=== PATIENT | female | born 1955 | race Caucasian/White ===

== ENCOUNTER 2019-05-11 16:42 | Inpatient (IN) | payer MEDICARE ==
[~2019-05-11] VITALS: Ht 160 cm; Wt 53.0 kg
--- NOTE | 2019-05-11 16:50 | NUR ---
PATIENT TO ROOM VIA WHEELCHAIR, BEDSIDE TRIAGE COMPLETED.
--- NOTE | 2019-05-11 18:06 | NUR ---
SPOKE WITH ANTOINE PEREZ IN LAB, X2 HAS BEEN COLLECTED.
[2019-05-11 18:11] LABS: HEMATOCRIT 42.9 % (37.0-47.0); HEMOGLOBIN 13.8 g/dl (12.0-16.0); IMMATURE GRANULOCYTES 0.3 % (0.0-5.0); MEAN CELL VOLUME 96.6 fL CALC (80.0-100.0); MEAN CORPUSCULAR HGB 31.1 pG CALC (26.0-32.0); MEAN CORPUSCULAR HGB CONC 32.2 g/L CALC (32.0-36.0); NEUT# 6.85 thou/uL (2.00-7.15); RED BLOOD COUNT 4.44 mill/uL (4.20-5.60); RED CELL DISTRI WIDTH 12.2 % (11.5-15.5)
[2019-05-11 18:25] LABS: PROTHROMBIN TIME 10.5 SECONDS (9.0-12.5)
[2019-05-11 18:30] LABS: ALBUMIN 3.5 g/dL (3.2-5.0); ALKALINE PHOSPHATASE 67 u/l (38-126); BILIRUBIN, TOTAL 0.7 mg/dL (0.0-1.4); BUN 19 mg/dL (8-23); BUN/CREATININE RATIO 27 (12-20 (CALC)); CHLORIDE 83 mmol/l (95-108); CREATININE 0.7 mg/dL (0.5-1.0); ETHYL ALCOHOL 0 mg/dl (0-30); GFR > 60 ML/MIN (>=60 (CALC)); GFR FOR AFR.AMER. > 60 ML/MIN (>=60 (CALC)); LIPASE 17 u/l (23-300); MAGNESIUM 1.8 mg/dL (1.6-2.3); POTASSIUM 3.5 mmol/l (3.5-5.1); SGOT/AST 28 u/l (9-36); SODIUM 136 mmol/l (137-146); TOTAL PROTEIN 6.8 g/dL (6.3-8.2)
[2019-05-11 18:35] LABS: ANION GAP 11 (6-22 (CALC))
[2019-05-11 18:38] LABS: CARBON DIOXIDE 46 mmol/l (22-30)
--- NOTE | 2019-05-11 20:28 | NUR ---
REPORT GIVEN TO CHRISTINE ENRIQUE. ED PHYSICIAN, DR. SMITH, NOTIFIED OF POSITIVE FLU. HE PLANS TO ORDER TAMIFLU
--- NOTE | 2019-05-11 21:00 | NUR ---
ARRIVED FROM ER ON BIPAP. PLACED ON DROPLET PRECAUTIONS FOR POSITIVE INFLUENZA A. ORKIENTED TO ROOM AND ADMISSION WORKUP BEGUN.
[2019-05-11 22:00] VITALS: BP 105/73
[2019-05-11 23:00] VITALS: BP 110/69
[2019-05-12] VITALS (22 sets, daily range): BP systolic 96–166; BP diastolic 49–85
--- NOTE | 2019-05-12 00:27 | NUR ---
JADE BIPAP. POPSICLE AND ICE WITH SIPS OF WATER GIVEN INTERMITTENTLY. PO MEDS GIVEN AT HS INCLUDING FIRST DOSE OF TAMIFLU.
--- NOTE | 2019-05-12 02:05 | NUR ---
TOLERATING BIPAP. WATCHING TV REMAINS AWAKE. LOW SINUS TACH ON TELE, 106.
--- NOTE | 2019-05-12 04:24 | NUR ---
TAKEN OFF BIPAP AND PLACED ON 3L NC SHORT TERM FOR PT TO EAT 1/2 OF POPSICLE STICK. HAD NO SOB, DYSPNEA, TACHYPNEA OR 02 SAT ALTERATION. RETURNED TO BIPAP AT PREVIOUS SETTINGS. RESTING NOW WITH EYES CLOSED AND FACE RELAXED.
[2019-05-12 06:38] LABS: ANION GAP 8 (6-22 (CALC)); BUN 25 mg/dL (8-23); BUN/CREATININE RATIO 34 (12-20 (CALC)); CARBON DIOXIDE 39 mmol/l (22-30); CHLORIDE 92 mmol/l (95-108); CREATININE 0.7 mg/dL (0.5-1.0); GFR > 60 ML/MIN (>=60 (CALC)); GFR FOR AFR.AMER. > 60 ML/MIN (>=60 (CALC)); POTASSIUM 3.6 mmol/l (3.5-5.1); SODIUM 136 mmol/l (137-146)
--- NOTE | 2019-05-12 06:38 | NUR ---
AM MEDS GIVEN AND PT VOIDED ON BEDPAN. URINE SPEC SENT TO LAB. TAKEN OFF BIPAP FOR SHORT TIME WHILE PT ATE 1/2 POPSICLE. 02 SATS AND RR MAINTAINED BUT PT VERBALIZED THAT SHE WAS FEELING VERY SHORT OF BREATH. RETURNED TO BIPAP AT PREVIOUS SETTINGS.
--- NOTE | 2019-05-12 06:45 | NUR ---
RECIEVED REPORT FROM CHRISTINE ENRIQUE. ASSUMED PT CARE.
--- NOTE | 2019-05-12 07:00 | NUR ---
PT RESTING IN BED, A&0X4, ABLE TO MAKE NEEDS KNOWN. RESPIRATIONS EVEN/UNLABORED, PT REMAINS ON BIPAP /, FIO2@ 30%. DROPLET PRECAUTIONS INTACT, SA02@96%, LS DIMINISHED THROUGHOUT. ABDOMEN SOFT, FLAT, NON-TENDER, BSX4 ACTIVE. LANE'S BLE, HEELS OFFLOADED. PT REMAINS ST ON TELEMETRY, HR 102. PT DENIES CP OR DISTRESS AT THIS TIME. CALL LIGHT IN REACH. WILL MONITOR.
[2019-05-12 07:03] LABS: URINE BILIRUBIN - DIPSTICK SMALL (NEGATIVE); URINE COLOR YELLOW; URINE GLUCOSE - DIPSTICK NEGATIVE (NEGATIVE); URINE KETONE 15 mg/dL (NEGATIVE); URINE LEUK ESTERASE SMALL (NEGATIVE); URINE NITRITE - DIPSTICK POSITIVE (Negative); URINE PH 6.5 (4.5-8.0); URINE PROTEIN - DIPSTICK TRACE mg/dL (NEG-TRACE); URINE UROBILINOGEN - DIPSTICK 0.2 E.U./dL (0.2)
[2019-05-12 07:04] LABS: URINE BLOOD DIPSTICK NEGATIVE (NEGATIVE)
[2019-05-12 07:08] LABS: URINE BACTERIA MANY hpf; URINE EPITHELIAL CELLS MODERATE EPI/hpf (0-FEW)
[2019-05-12 07:12] LABS: BARBITURATES NEGATIVE (NEGATIVE); COCAINE NEGATIVE (NEGATIVE); METHADONE NEGATIVE (NEGATIVE); TETRAHYDROCANNABIONOL NEGATIVE (NEGATIVE); TRICYLIC ANTIDEPRESSANTS NEGATIVE (NEGATIVE)
[2019-05-12 07:13] LABS: OXCYCODONE NEGATIVE (NEGATIVE)
--- NOTE | 2019-05-12 07:29 | NUR ---
RT AT BEDSIDE FOR ABG.
--- NOTE | 2019-05-12 08:15 | NUR ---
DIETARY ON UNIT, PT REPOSITIONS SELF. BIPAP PLACED ON STANDBY. PT TOLERATING WELL. [id number]% ON 4LPM VIA NC. BREAKFAST TRAY SET UP. CALL LIGHT IN REACH. WILL MONITOR.
--- NOTE | 2019-05-12 09:27 | NUR ---
PT FAMILY ARRIVED AT BEDSIDE, UPON ENTERING UNIT, PT SISTER BEGAN DEMANDING TO BE UPDATED ON PT CONDITION. THIS REFRIGERATION ENGINEER ASKED HER TO WEAR MASK UPON ENTERING ROOM AND INFORMED THAT THE THE PT WAS A&OX4 AND ABLE TO ANSWER THE QUESTIONS SHE MAY HAVE. UPON HER SISTER ENTERING PT ROOM PT SISTER BEGAN DEMANDING INFORMATION AND BECAME LOUD WITH PT. PT REMAINS ON 4LPM VIA NC AND BEGAN TO BE SOB, PT THEN ASKED TO BE PLACED BACK ON THE BIPAP. PT SA02 97% ON 4LPM VIA NS, RESPIRATIONS BECAME FAST AND LABORED. FAMILY REMINDED THAT PT NEEDED A CALM ENVIRONMENT AND THAT IF THEY WERE UNABLE TO MAINTAIN THAT, THEY WOULD BE ASKED TO LEAVE. REPLACED BIPAP AND SAME SETTINGS PER PT REQUEST. CALL LIGHT IN REACH. WILL MONITOR. FAMILY REMAINS AT BEDSIDE.
--- NOTE | 2019-05-12 10:06 | NUR ---
RT AT BEDSIDE FOR BREATHING TX. PT REMAINS ON BIPAP.
[2019-05-12] MEDS ORDERED: LEVOTHYROXIN75 MCG PO (10:29)
[2019-05-12] MEDS ORDERED: ISOSORB DIN30 MG PO (10:30)
[2019-05-12] MEDS ORDERED: RANOLAZINE ER500 MG PO (10:30)
[2019-05-12] MEDS ORDERED: MAXZIDE PO (10:31)
[2019-05-12] MEDS ORDERED: CALAN SR120 M1 PO (10:31)
[2019-05-12] MEDS ORDERED: PRAVASTATIN40 MG PO (10:32)
[2019-05-12] MEDS ORDERED: SPIRIVA HANDIHALER IN (10:33)
--- NOTE | 2019-05-12 12:00 | NUR ---
PT RESTING IN BED WITH EYES CLOSED, SISTER REMAINS AT BEDSIDE. RESPIRATION EVEN/UNLABORED. CALL LIGHT IN REACH.
--- NOTE | 2019-05-12 12:30 | NUR ---
BIPAP STANDBY. PT ON 3L NC
--- NOTE | 2019-05-12 13:00 | NUR ---
DR. DAMON AT BEDSIDE FOR ASSESSMENT AND TO DISCUSS PLAN OF CARE, NEW PRDERS RECIEVED.
--- NOTE | 2019-05-12 14:28 | NUR ---
PT ASSISTED WITH BEDPAN, VOIDED 250, DARK CAROL ANN URINE. PT REMAINS ON BIPAP. CALL LIGHT IN REACH.
--- NOTE | 2019-05-12 15:49 | NUR ---
BIPAP PAUSED, PT OFFERED FLUIDS AND SNACK, THEN BIPAP REPLACED AT PREVIOUS SETTING. PT TOLERATED WELL. CALL LIGHT IN REACH, WILL MONITOR.
--- NOTE | 2019-05-12 16:26 | NUR ---
PT RESTING IN BED WITH EYES CLOSED. OFFERS NO COMPLAINTS AT THIS TIME. IS DELIVERED TO ROOM BY RT.
--- NOTE | 2019-05-12 17:36 | NUR ---
BIPAP STANDBY. PT ON 3L NC
--- NOTE | 2019-05-12 18:00 | NUR ---
PT RESTING IN BED, WATCHING TV. PT REMAINS ON 02@3LPM VIA NC. SA02 REMAINS 96%. CALL LIGHT IN REACH. WILL MONITOR.
--- NOTE | 2019-05-12 20:00 | NUR ---
PATIENT RESTING IN BED. FAMILY AT BEDSIDE. PATIENT REQUESTING TO BE ON BIPAP. PATIENT ASSESSMENT COMPLETED. VITALS STABLE. PATIENT IN NO SIGNS OF DISTRESS. LUNGS DIMINISHED. O2 SAT 95% ON BIPAP. WILL CONTINUE TO MONITOR PATIENT.
--- NOTE | 2019-05-12 21:00 | NUR ---
PATIENT RESTING IN BED. PATIENT REQUESTING BEDPAN. PATIENT ASSISTED. PATIENT WITH NO COMPLAINTS OR DISCOMFORT. PT REQUESTING BIPAP. BIPAP PLACED ON PATIENT. VITALS STABLE. NO SIGNS OF DISTRESS. PT VOIDED. WILL CONTINUE TO MONITOR PATIENT.
--- NOTE | 2019-05-12 22:00 | NUR ---
PATIENT RESTING IN BED. MEDS GIVEN. PATIENT WITH NO COMPLAINTS OF PAIN OR DISCOMFORT. PATIENT REQUESTING JUICE AND POPSICLE. ITEMS PROVIDED. NO SIGNS OF DISTRESS. VITALS STABLE. WILL CONTINUE TO MONITOR.
--- NOTE | 2019-05-12 23:00 | NUR ---
PATIENT RESTING WITH BIPAP ON. RESPIRATORY PROVIDED TREATMENT. PATIENT WITH NO REQUEST. VITALS STABLE. WILL CONTINUE TO MONITOR.
[2019-05-13] VITALS (23 sets, daily range): BP systolic 107–152; BP diastolic 56–85
--- NOTE | 2019-05-13 | NUR ---
PATIENT IN BED RESTING. BIPAP ON. VITALS STABLE. WILL CONTINUE TO MONITOR. CALL LIGHT WITHIN REACH. NO REQUEST.
--- NOTE | 2019-05-13 01:00 | NUR ---
PATIENT RESTING WITH BIPAP. PATIENT IN NO DISTRESS.VITALS STABLE. WILL CONTINUE TO MONTOR
--- NOTE | 2019-05-13 02:04 | NUR ---
PATIENT SLEEPING. BIPAP IN PLACE. O2 >92%. NO SIGNS OF PAIN OR DISCOMFORT. PATIENT VITALS STABLE. WILL CONTINUE TO MONITOR PATIENT.
--- NOTE | 2019-05-13 04:00 | NUR ---
PATIENT REQUESTED A POPSICLE. PATIENT PLACED ON NASAL CANNULA FOR A FEW MINUTES. PATIENT WITH NO COMPLAINTS OF PAIN OR DISCOMFORT. PATIENTS VITALS STABLE. WILL CONTINUE TO MONITOR PATIENT.
--- NOTE | 2019-05-13 05:00 | NUR ---
PATIENT RESTING. VITALS STABLE. NO SIGNS OF DISTRESS. WILL CONTINUE TO MONITOR.
--- NOTE | 2019-05-13 06:00 | NUR ---
PATIENT PROVIDED WITH BED [facility]. PATIENT WITH NO COMPLAINTS OF PAIN OR DISCOMFORT.RESTING WITH BIPAP ON. NO REQUEST AT THE MOMENT WILL CONTINUE TO MONITOR.
--- NOTE | 2019-05-13 07:40 | NUR ---
REPORT RECEIVED FROM NIGHT NURSE. PT RESTING IN BED WITH EYES CLOSED. NO DISTRESS NOTED. PT ON BiPAP. PT DENIES PAIN. NO NEEDS AT THIS TIME. WILL CONTINUE TO MONITOR.
--- NOTE | 2019-05-13 09:06 | NUR ---
PT UP IN BED EATING BREAKFAST. PT PLACED ON NC FOR BREAKFAST AND BACK ON BiPAP AFTER SHE WAS FINISHED. NO DISTRESS NOTED. WILL CONTIUNE TO MONITOR.
--- NOTE | 2019-05-13 09:40 | NUR ---
DR. DAMON AT BEDSIDE TO ASSESS PT.
--- NOTE | 2019-05-13 10:25 | NUR ---
PT TO CT SCAN WITH THIS RN IN WHEELCHAIR AND OXYGEN. NO DISTRESS NOTED
--- NOTE | 2019-05-13 10:40 | NUR ---
PT BACK TO ICU8 FROM CT SCAN. PLACED BACK ON BiPAP. NO DISTRESS NOTED. WILL CONTINUE TO MONITOR.
--- NOTE | 2019-05-13 11:40 | NUR ---
PT UP IN BED FOR LUNCH. PT PLACED ON 4L NC TO EAT. NO DISTRESS NOTED. WILL CONTINUE TO MONITOR.
--- NOTE | 2019-05-13 12:16 | NUR ---
PT PLACED BACK ON BiPAP AFTER FINISHING LUNCH. PT URINATED VIA BEDPAN. PT DENIES ANY PAIN. NO NEEDS AT THIS TIME. WILL CONTINUE TO MONITOR.
--- NOTE | 2019-05-13 14:18 | NUR ---
PT RESTING IN BED WITH EYES CLOSED. PT ON BiPAP. NO DISTRESS NOTED. WILL CONTINUE TO MONITOR.
--- NOTE | 2019-05-13 16:09 | NUR ---
PT RESTING IN BED. PT ON BiPAP. NO DISTRESS NOTED. PT DENIES ANY PAIN. NO NEEDS AT THIS TIME. WILL CONTINUE TO MONITOR.
--- NOTE | 2019-05-13 17:54 | NUR ---
PT PLACED ON 4L NC TO EAT DINNER.
--- NOTE | 2019-05-13 18:15 | NUR ---
PT DONE WITH DINNER. PLACED BACK ON BiPAP.
--- NOTE | 2019-05-13 18:20 | NUR ---
PT RESTINF IN BED WITH EYES CLOSED. PT ON BiPAP. NO DISTRESS NOTED. PT DENIES ANY PAIN AT THIS TIME. A&OX4. SR-ST. AFEBRILE. ON BiPAP THROUGHOUT THE SHIFT EXCEPT FOR MEALS. PT TOLERATED NASAL CANULA DURING MEALS. CT COMPLETE. PT URINATED VIA BEDPAN THIS SHIFT. NO BM. PT TOLERATED DIET. PT DENIES ANY NEEDS AT THIS TIME. WILL CONTINUE TO MONITOR. REPORT TO BE GIVEN TO NIGHT NURSE. PLEASE SEE FLOW SHEET FOR FURTHER DETAILS.
--- NOTE | 2019-05-13 19:30 | NUR ---
awake. bipap cont. diminished breath sounds bilat. hospice aide shows sinus rhythm hr 93. #18 lac saline lock. fall & droplet precautions cont.
--- NOTE | 2019-05-13 22:00 | NUR ---
eyes closed. bipap cont. no distress. athletic monitor shows sinus rhythm hr 86.
[2019-05-14] VITALS (20 sets, daily range): BP systolic 112–164; BP diastolic 56–83
--- NOTE | 2019-05-14 00:01 | NUR ---
eyes closed. no distress. surveillance monitor shows sinus rhythm hr 84.
--- NOTE | 2019-05-14 02:00 | NUR ---
resting quietly. resps even & unlabored. no apparent distress.
--- NOTE | 2019-05-14 04:35 | NUR ---
lab here. blood drawn.
--- NOTE | 2019-05-14 04:50 | NUR ---
pt requested bedpan. request denied. up to bsc.
[2019-05-14 05:01] LABS: MEAN CELL VOLUME 97.5 fL CALC (80.0-100.0); MEAN CORPUSCULAR HGB 31.2 pG CALC (26.0-32.0); RED BLOOD COUNT 3.62 mill/uL (4.20-5.60)
[2019-05-14 05:05] LABS: HEMATOCRIT 35.3 % (37.0-47.0); HEMOGLOBIN 11.3 g/dl (12.0-16.0)
[2019-05-14 05:17] LABS: BUN 24 mg/dL (8-23); BUN/CREATININE RATIO 35 (12-20 (CALC)); CHLORIDE 95 mmol/l (95-108); CREATININE 0.7 mg/dL (0.5-1.0); GFR > 60 ML/MIN (>=60 (CALC)); GFR FOR AFR.AMER. > 60 ML/MIN (>=60 (CALC)); POTASSIUM 3.8 mmol/l (3.5-5.1); SODIUM 137 mmol/l (137-146)
[2019-05-14 05:21] LABS: ANION GAP 6 (6-22 (CALC)); CARBON DIOXIDE 40 mmol/l (22-30)
--- NOTE | 2019-05-14 05:30 | NUR ---
pt sat on bsc x40 min. geovanny well. no resp distress. bipap cont.
--- NOTE | 2019-05-14 07:10 | NUR ---
REPORT RECEIVED FROM NIGHT NURSE. PT RESTING WITH EYES CLOSED IN BED. NO DISTRESS NOTED. WILL CONTINUE TO MONITOR.
--- NOTE | 2019-05-14 08:01 | NUR ---
PT PLACED ON 4L NC FOR BREAKFAST.
--- NOTE | 2019-05-14 08:29 | NUR ---
PT PLACED BACK ON BiPAP AFTER BREAKFAST. NO DISTRESS NOTED. DENIES ANY PAIN AT THIS TIME. WILL CONTINUE TO MONITOR
--- NOTE | 2019-05-14 09:25 | NUR ---
DR. BAUTISTA AT BEDSIDE. PT PLACED ON 4L NC SISTER AND BROTHER AT BEDSIDE. ALL QUESTIONS ANSWERED. DR. BAUTISTA NOTIFIED OF SEPSIS ALERT. DR. BAUTISTA NOTIFIED THAT PT REFUSED TO GET OUT OF BED TO CHAIR. WILL CONTINUE TO MONITOR.
--- NOTE | 2019-05-14 10:30 | NUR ---
PT RESTING WITH EYES CLOSED. PT ON NASAL CANULA. NO DISTRESS NOTED. OXYGEN SAT 92-95%. WILL CONTINUE TO MONITOR.
--- NOTE | 2019-05-14 11:40 | NUR ---
PT UP IN CHAIR FOR LUNCH. PT AMBULATED TO CHIAR X1 ASSIST. PT ON 4L NC. TOLERATING SITTING UP.
--- NOTE | 2019-05-14 12:56 | NUR ---
PT BACK IN BED AFTER LUNCH. PT AMBULATED TO BEDSIDE COMMODE. NO DISTRESS NOTED. DENIES PAIN. NO NEEDS AT THIS TIME. WILL CONTINUE TO MONITOR.
--- NOTE | 2019-05-14 14:09 | NUR ---
PT RESTING IN BED. NO DISTRESS NOTED. PT DENIES PAIN. NO NEEDS AT THIS TIME. WILL CONTINUE TO MONITOR.
--- NOTE | 2019-05-14 16:44 | NUR ---
PT RESTING IN BED. NO DISTRESS NOTED. DENIES ANY NEEDS AT THIS TIME. PT DENIES PAIN. WILL CONTINUE TO MONITOR
[2019-05-14] MEDS ORDERED: ADULT ASPIRIN R81 MG PO (16:46)
--- NOTE | 2019-05-14 18:09 | NUR ---
PT IN BED EATING DINNER. NO DISTRESS NOTED. DENIES PAIN. WILL CONTINUE TO MONITOR
--- NOTE | 2019-05-14 18:30 | NUR ---
PT GIVEN BED BATH. DIFFICULTY BREATHING ON EXERTION. PLACED BACK ON BiPAP. WILL CONTINUE TO MONITOR.
--- NOTE | 2019-05-14 18:45 | NUR ---
PT BREATHING IMPROVING. NO DISTRESS NOTED. PT STATING SHE FEELS BETTER ON BiPAP. NO DIFFICULTY BREATHING NOTED AT THIS TIME. OXYGEN SATURATION IMPROVING. REPORT GIVEN TO NIGHT NURSE.
--- NOTE | 2019-05-14 21:00 | NUR ---
awake. nad. bipap cont. satellite project site monitor shows sinus rhythm hr 96. #18 lac saline lock. po fluids taken poor. voids per bsc. fall precautions cont. bipap off-nc on per pts request. restoril 15mg po given per request for sleep.
--- NOTE | 2019-05-14 23:00 | NUR ---
awake. snack given per request.
[2019-05-15] VITALS (14 sets, daily range): BP systolic 112–145; BP diastolic 55–76
--- NOTE | 2019-05-15 00:01 | NUR ---
eyes closed. no resp diff. o2 cont per nc. ekg monitor shows sinus rhythm pvcs hr 86.
--- NOTE | 2019-05-15 02:00 | NUR ---
resting quietly. resps even & unlabored. no apparent resp diff.
--- NOTE | 2019-05-15 04:00 | NUR ---
eyes closed. no resp diff. o2 cont per nc. child support officer shows sinus rhythm pvcs hr 82.
--- NOTE | 2019-05-15 05:00 | NUR ---
awake. requested "bedpan & bipap." rt @ bedside & changed nc for bipap. up per self to bsc.
--- NOTE | 2019-05-15 06:00 | NUR ---
awakens easily. bipap cont. no resp diff.
--- NOTE | 2019-05-15 07:26 | NUR ---
INGA STANDBY. PT. ON 3 NC
--- NOTE | 2019-05-15 08:00 | NUR ---
PT RESTING IN BED AWAKE AND WATCHING TV. PT IS ALERT AND ORIENTED X3. SHIFT ASSESSMENT COMPLETED AT THIS TIME. IV PATENT X1. CALL LIGHT IN REACH. WILL CONTINUE TO MONITOR.
--- NOTE | 2019-05-15 09:59 | NUR ---
DR DAMON AT BEDSIDE AT THIS TIME.
--- NOTE | 2019-05-15 10:46 | NUR ---
MULTIPLE FAMILY MEMBERS AT BEDSIDE. CALL PLACED TO CASE MANAGEMENT TO DISCUSS LIVING WILL AND HEALTH CARE SURROGATE UPON FAMILY REQUEST.
--- NOTE | 2019-05-15 11:31 | NUR ---
PT ASSISTED UP TO CHAIR FOR NOON MEAL. FAMILY AT BEDSIDE.
--- NOTE | 2019-05-15 12:24 | NUR ---
PT SITTING UP IN CHAIR. FAMILY AT BEDSIDE. CALL LIGHT IN REACH. WILL CONTINUE TO MONITOR.
--- NOTE | 2019-05-15 13:00 | NUR ---
PT OFFERRED HYGIENE CARE AND LINEN CHANGE PATIENT REFUSED. OFERRED TO [facility] SITE PT STATES THAT I AM LEAVING TOMORROW THIS ONE IS FINE.
--- NOTE | 2019-05-15 14:09 | NUR ---
PT ASSISTED TO BSC TO VOID THEN ASSISTED BACK TO BED PER PATIENT REQUEST. PT TOLERATED TRANSFER WELL.
--- NOTE | 2019-05-15 16:00 | NUR ---
[employer] AT [facility] AT THIS TIME DISCUSSING TRANSFER AND PLACEMENT WITH PATIENT.
--- NOTE | 2019-05-15 17:45 | NUR ---
PT SET UP FOR PM MEAL
--- NOTE | 2019-05-15 19:18 | NUR ---
REPORT RECEIVED FROM CHRISTINE PARRISH. PT RESTING IN BED WITH EYES CLOSED AND LIGHTS OFF. ON DROPLET PRECAUTIONS.
--- NOTE | 2019-05-15 20:19 | NUR ---
PT NOW RESTING IN SEMI FOWLERS WATCHING TV; ALERT AND ORIENTED. DENIES PAIN. RESPIRATIONS ARE SHALLOW, EVEN, AND LABORED WITH OXYGEN IN PLACE AT 4L NC. PT DOES REPORT THAT SHE FEELS SOB AT REST; 16 RPM; 88% SPO2. ONLY SPEAKS TO ANSWER QUESTIONS; DOES NOT MAKE EYE CONTACT; DENIES ANXIETY. LUNGS ARE VERY DIMINISHED. PT REQUESTS TO USE BEDPAN TO VOID; DECLINES BSC STATING THAT SHE IS AFRAID SHE WILL BECOME TO SOB. ASSISTED ONTO BEDPAN.
--- NOTE | 2019-05-15 20:28 | NUR ---
ASSISTED OFF BEDPAN; VOIDED CLEAR YELLOW URINE. PT OFFERED BIPAP AND SHE DECLINES STATING SHE WANTS TO ATTEMPT TO USE THE NC TONIGHT. NSR ON TELEMETRY HR 98. WILL CONTINUE TO MONITOR.
--- NOTE | 2019-05-15 21:07 | NUR ---
RESTORIL GIVEN WITH HS MEDS PER REQUEST. PT SEEMS MORE RELAXED. 89% SPO2.
--- NOTE | 2019-05-15 22:25 | NUR ---
RT AT BEDSIDE FOR BREATHING TREATMENT.
[2019-05-16] VITALS (7 sets, daily range): BP systolic 109–151; BP diastolic 50–73
--- NOTE | 2019-05-16 00:13 | NUR ---
PT RESTING ON LEFT SIDE WITH EYES CLOSED AND NO SIGNS OF DISTRESS; AWAKENS TO VERBAL STIMULI. VSS. RESPIRATIONS EVEN AND UNLABORED ON OXYGEN; 91% SPO2. NO REQUESTS OR CONCERNS AT THIS TIME. CALL LIGHT WITHIN REACH.
--- NOTE | 2019-05-16 02:00 | NUR ---
PT ASLEEP WITH NO CHANGES.
--- NOTE | 2019-05-16 04:22 | NUR ---
PT INCONTINENT OF URINE CAUSING HIGH ANXIETY; PT WITH LABORED BREATHING AND OXYGEN SATURATIONS IN THE 60'S. PT SITTING UP IN TRIPOD POSITION. OFFERED BIPAP AND PT DECINED STATING SHE WOULD TRY TO MANAGE WITH NC. BREATHING TREATMENT INITIATED AT THIS TIME. BREATHING IS LESS LABORED AND PT SEEMS MORE RELAXED. CURRENTLY 92% ON 4L WITH TREATMENT. PT ASSISTED WITH PERICARE.
--- NOTE | 2019-05-16 04:55 | NUR ---
PT NOW RESTING SEMI FOWLERS WITH EYES CLOSED AND CALM. RESPIRATIONS EVEN AND UNLABORED; 94% SPO2. STATES THAT SHE IS COMFORTABLE. NO NEEDS AT THIS TIME.
--- NOTE | 2019-05-16 06:45 | NUR ---
RECIEVED REPORT FROM CHRISTINE CASTELLANOS. ASSUMED PT CARE.
--- NOTE | 2019-05-16 07:45 | NUR ---
PT RESTING IN BED. A&OX4, ABLE TO MAKE NEEDS KNOWN. PT DENIES CP. NSR OF TELEMETRY, HR 78. RESPIRATIONS EVEN/SHALLOW, SA02@94% ON 4LPM VIA NC. IS AT BEDSIDE. PT BECOMES SOB WITH MINIMAL EXERTION OR ANXIETY.LS DIMINISHED THROUGHOUT. ABDOMEN SOFT, NON-TENDER, DROPLET PRECATIONS INTACT. PT AFEBRILE CALL LIGHT IN REACH WILL MONITOR.
--- NOTE | 2019-05-16 09:15 | NUR ---
DIETARY AT BEDSDIE TO TAKE LUNCH AND DINNER ORDER.
--- NOTE | 2019-05-16 09:35 | NUR ---
PT SISTER ARRIVED AT [facility] FOR VISIT
--- NOTE | 2019-05-16 09:42 | NUR ---
DR. DAMON AT [facility] FOR ASSESSMENT AND TO DISCUSS PLAN OF CARE. NEW ORDERS RECIEVED. PT SISTER REMAINS AT BEDSIDE
[2019-05-16] MEDS ORDERED: LEVAQUIN750 MG PO (09:50)
[2019-05-16] MEDS ORDERED: TAM75CAP PO (09:50)
[2019-05-16] MEDS ORDERED: PREDNISONE10 MG PO (09:50)
--- NOTE | 2019-05-16 11:02 | NUR ---
CM AT BEDSIDE. PT HAS TO HAVE LIVIVNG WILL DRAWN UP BY AN PROFESSOR OF SURGERY. STAFF UNABLE TO PARTICIPATE IN THAT LEGAL DOCUMENT. PT NOTIFIED. WILL UPDATE FAMILY UPON ARRIVAL AT BEDSIDE.
--- NOTE | 2019-05-16 11:27 | NUR ---
PT ASSISTED TO BSC, SOB WITH EXERTION NOTED. PT TOLERATED OK.
--- NOTE | 2019-05-16 11:28 | NUR ---
NOTIFIED PT SISTER JANET. SHE STATED THET SHE WILL BE HERE APPROX 12:30PM TO GET PT AND TRANSPORT HER TO THE REHAB. PT WILL PROVIDE HER OWN O2 TANK.
--- NOTE | 2019-05-16 13:05 | NUR ---
IV site discontinued, cath intact. No edema , no redness, voices no discomfort.
--- NOTE | 2019-05-16 13:25 | NUR ---
Discharge instructions given. Patient verbalizes understanding of same. Discharged in stable condition via Wheelchair to *Other with family. All belongings sent with pt. PAPER PRESCRIPTION SENT WITH PT.
== END 2019-05-16 13:25 | DRG 193 ==
LOC: ED 16:42 → ED-I 19:04 → ED 19:17 → ICU 19:18
PROVIDERS: ADMIT Internal Medicine; ATTEND Internal Medicine
PROC: 5A09357 Assistance with Respiratory Ventilation, Less than 24 Consecutive Hours, Continuous Positive Airway Pressure (ICD-10-PCS; principal; 2019-05-11)
DX: J10.00 Influenza due to other identified influenza virus with unspecified type of pneumonia (principal); J96.22 Acute and chronic respiratory failure with hypercapnia; J96.21 Acute and chronic respiratory failure with hypoxia; J43.1 Panlobular emphysema; I10 Essential (primary) hypertension; I25.10 Atherosclerotic heart disease of native coronary artery without angina pectoris; I65.29 Occlusion and stenosis of unspecified carotid artery; E89.0 Postprocedural hypothyroidism; F17.200 Nicotine dependence, unspecified, uncomplicated; I25.2 Old myocardial infarction; Z95.828 Presence of other vascular implants and grafts; Z99.81 Dependence on supplemental oxygen
CPT/HCPCS: J1650; Q9967